=== PATIENT | male | born 1990 | race Caucasian/White ===

== ENCOUNTER 2022-12-30 15:46 | Emergency (ER) | payer BC, OTHER ==
[2022-12-30 16:25] VITALS: O2SAT 97
--- NOTE | 2022-12-30 16:33 | ERPHSYRPT ---
- History of Present Illness Time Seen by Provider: 12/30/22 16:29 Source: patient Exam Limitations: no limitations Patient Subjective Stated Complaint: C/O cut to finger on right hand. Patient states he cut his finger on a rust piece of metal pipe just prior to coming into the ER. Triage Nursing Assessment: Patient arrived in ER with a papertowel wrapped around his 4th digit of his right hand. Towel removed; no active bleeding at this time but towel does have blood on it. 0.1cm X 2cm cut noted to finger under towel. Area cleansed with sterile water and hibiclens. Physician History: C/O cut to finger on right hand. Patient states he cut his finger on a rust piece of metal pipe just prior to coming into the ER. Patient arrived in ER with a papertowel wrapped around his 4th digit of his right hand. Towel removed; no active bleeding at this time but towel does have blood on it. 0.1cm X 2cm cut noted to finger under towel Timing/Duration: today Severity: mild Modifying Factors: Improves With: cold therapy Associated Symptoms: denies symptoms Allergies/Adverse Reactions: No Known Drug Allergies Allergy (Verified 12/30/22 16:14) Home Medications: No Home Meds [No Home Meds] 1 ea UD 10/10/14 [History] Hx Tetanus, Diphtheria Vaccination/Date Given: Yes (NOT tetanus) Hx Influenza Vaccination/Date Given: No Hx Pneumococcal Vaccination/Date Given: No Immunizations Up to Date: Yes (NOT tetanus) Travel Risk - International Travel Have you traveled outside of the country in past 3 weeks: No - Coronavirus Screening Are you exhibiting any of the following symptoms?: No Close contact with a COVID-19 positive Pt in past 14-21 Days: No - Vaccine Status Have you recieved a Covid-19 vaccination: No - Review of Systems Constitutional: No Symptoms Eyes: No Symptoms Ears, Nose, & Throat: No Symptoms Respiratory: No Symptoms Cardiac: No Symptoms Abdominal/Gastrointestinal: No Symptoms Genitourinary Symptoms: No Symptoms Musculoskeletal: No Symptoms Skin: Other (laceration on finger) - Past Medical History Pertinent Past Medical History: No Other Medical History: BACK PROBLEMS IN PAST - Past Surgical History Past Surgical History: Yes Other Surgical History: RT ANKLE--HARDWARE INTACT. TUBES - Social History Smoking Status: Never smoker Exposure to second hand smoke: No Drug Use: none Patient Lives Alone: No - Nursing Vital Signs Nursing Vital Signs: Initial Vital Signs Temperature 98.2 F 12/30/22 16:15 Pulse Rate 100 H 12/30/22 16:15 Respiratory Rate 18 12/30/22 16:15 Blood Pressure 134/80 12/30/22 16:15 O2 Sat by Pulse Oximetry 97 12/30/22 16:15 Pain Scale Pain Intensity 2 - Physical Exam General Appearance: no apparent distress Eye Exam: PERRL/EOMI Ears, Nose, Throat Exam: normal ENT inspection Neck Exam: normal inspection Respiratory Exam: normal breath sounds Neurologic Exam: alert, oriented x 3 Skin Exam: laceration SpO2 Interpretation: normal SpO2: 97 O2 Delivery: Room Air Procedures - Laceration/Wound Repair Right Finger Time of Procedure: 16:32 Wound Location: Left, Right (4th finger) Wound Length (cm): 1 Wound's Depth, Shape: superficial Wound Explored: clean Irrigated: Yes Hibiclens Prep: Yes Wound Repaired With: Steri-strips, Dermabond - Course Nursing assessment & vital signs reviewed: Yes Ordered Tests: Active Orders 24 hr Category Date Time Status Wound Care STAT Care 12/30/22 16:21 Active - Progress Progress: improved Counseled pt/family regarding: diagnosis, need for follow-up Medical Desision Making - Diagnostic Testing Diagnostic Testing: Diagnostic tests were ordered,analyzed, and reviewed by me and used in my medical decision making for this patient. Radiologic studies (if ordered) were read by me initially then discussed with the radiologist . - Risk of complications Minimal Risk: Minimal risk of morbidity - Departure Departure Disposition: Home Clinical Impression: Laceration of finger of right hand Qualifiers: Encounter type: initial encounter Finger: ring finger Damage to nail status: without damage Foreign body presence: without foreign body Qualified Code(s): S61.214A - Laceration without foreign body of right ring finger without damage to nail, initial encounter Condition: Stable Critical Care Time: No Referrals: WENDI BRUNO [Primary Care Provider] - Follow up/PCP as directed Instructions: Common Finger Injuries (DC) Additional Instructions: Discharge/Care Plan DEVON ISSA was seen on 12/30/22 in the Emergency Room. The patient was counseled regarding Diagnosis,Lab results, Imaging studies, need for follow up and when to return to the Emergency Room. Prescriptions given: Discharge Note I have spoken with the patient and/or caregivers. I have explained the patient's condition, diagnosis and treatment plan based on the information available to me at this time. I have answered the patient's and/or caregiver's questions and addressed any concerns. The patient and/or caregivers have as good understanding of the patient's diagnosis, condition and treatment plan as can be expected at this point. The vital signs have been stable. The patient's condition is stable and appropriate for discharge from the emergency department. The patient will pursue further outpatient evaluation with the primary care physician or other designated or consulting physician as outlined in the discharge instructions. The patient and/or caregivers are agreeable to this plan of care and follow-up instructions have been explained in detail. The patient and/or caregivers have received these instruction. The patient/and or caregivers are aware that any significant change in condition or worsening of symptoms should prompt an immediate return to this or the closest emergency department or call 911. DEVON ISSA was seen on 12/30/22 n the Emergency Room. At that time you were treated for an emergent condition, during your visit Laboratory, Radiology and/or other procedures may have been ordered. It is very important that you follow-up with your Primary Care Physician WENDI BRUNO within the next 24-48 hours to review your Emergency Room visit and the final results of testing that was ordered. Some test results such as Urine Cultures, Blood Cultures, and other cultures if ordered will not be finalized for 24-48 hours. If you do not have a Primary Care Provider please call the medical records department at [phone] ext [phone] to obtain a copy of your results or you may sign into our patient portal to obtain these results by visiting us @ [email or web address] and completing the following steps: 1. Click on the Patient Portal link 2. Click the Patient Self Enrollment Link to complete the enrollment form and entering your 3. Once the enrollment form is completed you will receive an email with a temporary ID and password at the email address you provided. 4. Next choose a user name and password. Your user name must be at least 4 characters long and your password must be at least 4 characters long. 5. Choose a security question from the list and provide your answer to the question. If you already have signed into the Health Portal you may access your Health Care Information 10/06 by the following steps: 1. Login to our website @ [email or web address] 2. Enter your original user name and password. FAQS The [facility] Health Portal is an online tool that contains your Lab Results, Radiology Reports, Visit History, Discharge Instructions and Health Summary Lab and Radiology Results will not be available for 72 hours on the portal. The Portal is a secure site, passwords are encryted and URLs are re-written so they cannot be copied and pasted. You and authorized family members are the only ones who can access your Portal. Also there is a timeout feature that protects your information if you leave the Portal page open. If you have technical difficulty please use the Contact Us link on the page this will allow you to submit any questions you have regarding the Portal or you may contact the Medical Record Department at [phone] ext [phone].
[2022-12-30] MEDS ORDERED: Adacel Vial IM ONE ×2 (16:35→17:06)
[2022-12-30 17:23] VITALS: BP 120/74; PULSE 94
== END 2022-12-30 17:22 | disposition home or self-care (01) ==
LOC: ED 15:46
DX: S61.214A Laceration without foreign body of right ring finger without damage to nail, initial encounter (principal); W26.8XXA Contact with other sharp object(s), not elsewhere classified, initial encounter; Z28.310 Unvaccinated for COVID-19
CPT/HCPCS: 12001; 90471; 90715; 99282